=== PATIENT | female | born 1985 | race Hispanic/Latino ===

== ENCOUNTER 2019-05-31 20:22 | Emergency (ER) | payer OTHER ==
--- NOTE | 2019-05-31 23:10 | ER ---
Nurse's Notes [facility] Name: Hannah Grubbs Age: 34 yrs Sex: Female : 1985 Arrival Date: 05/31/2019 Time: 20:25 Bed 7 Private MD: Diagnosis: Cough;Down syndrome;Constipation Presentation: 05/31 20:38 Presenting complaint: Father states: "She's been crying, she's full of mucus and she aj1 can't cough it up, she feels like she can't breathe, like her nose is stuffed up" She was seen at her doctor's office for the same complaint on April 25 and she was diagnosed with allergies and they gave her pills and nasal spray, but it doesn't seem to be helping with her symptoms. Transition of care: patient was not received from another setting of care. Onset of symptoms was April 2019. Risk Assessment: Do you want to hurt yourself or someone else? Patient reports no desire to harm self or others. Initial Sepsis Screen: Does the patient meet any 2 criteria? No. Patient's initial sepsis screen is negative. Does the patient have a suspected source of infection? Yes: Productive cough/pneumonia. Care prior to arrival: None. 20:38 Method Of Arrival: Wheelchair aj1 20:38 Acuity: JOSHUA 3 aj1 Triage Assessment: 20:41 General: Appears in no apparent distress. comfortable, Behavior is calm, cooperative, aj1 appropriate for age. Pain: Unable to use pain scale. Does not appear to understand pain scale. Neuro: Level of Consciousness is awake, alert. Cardiovascular: Patient's skin is warm and dry. Respiratory: Airway is patent Respiratory effort is even, unlabored, Respiratory pattern is regular, symmetrical, the patient has mild shortness of breath. 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 - Coronavirus screen:: The patient has NOT traveled to [place] in the past 14 days. - Social history:: Smoking status: Patient denies any tobacco usage or history of. - Ebola Screening: : Patient denies travel to an Ebola-affected area in the 21 days before illness onset. Screenin:15 Abuse screen: Denies threats or abuse. Denies injuries from another. Nutritional lp1 screening: No deficits noted. Tuberculosis screening: No symptoms or risk factors identified. Fall Risk None identified. Assessment: 21:14 General: Appears in no apparent distress. Behavior is fussy, uncooperative. Pain: lp1 Unable to use pain scale. Does not appear to understand pain scale. Neuro: Level of Consciousness is awake, alert. Cardiovascular: Patient's skin is warm and dry. Respiratory: Airway is patent Respiratory effort is even, Breath sounds are clear bilaterally. Parent/caregiver reports the patient having cough that is productive. GI: Abdomen is non-distended. : No signs and/or symptoms were reported regarding the genitourinary system. EENT: Parent/caregiver reports the patient having nasal congestion. Derm: Skin is pink, warm \\T\\ dry. Musculoskeletal: No deficits noted. 21:30 Reassessment: Patient uncooperative with radiology, yelling, parents at bedside lp1 assisting civil cadd technician. 22:49 Reassessment: Patient agitated on arrival of nurse for reassessment; Parents at lp1 bedside, aware of waiting for report from radiologist. 23:25 Reassessment: Discharge instructions given to patient's parents about prescriptions and lp1 follow up with PCP if no improvement; increasing fiber to improve constipation. Vital Signs: 20:41 BP 130 / 99; Resp 18; Temp 98.4; Weight 52.62 kg (R); aj1 22:49 Pulse 125; Resp 20; Pulse Ox 99% on R/A; lp1 22:49 Patient agitated with pulse ox on finger, mother at bedside attempting to calm patient lp1 ED Course: 20:25 Patient arrived in ED. jg7 20:26 Patient's name was called from ER lobby. No response. aj1 20:39 Triage completed. aj1 20:41 Arm band placed on Patient placed in an exam room. aj1 20:45 Samir Boyd, RN is Primary Nurse. rv 20:45 Gerry Aly MD is Attending Physician. juaniat 21:14 Tiffanie Marina, YEHUDA is Primary Nurse. lp1 21:16 Patient has correct armband on for positive identification. lp1 22:50 No provider procedures requiring assistance completed. Patient did not have IV access lp1 during this emergency room visit. Administered Medications: No medications were administered Outcome: 23:09 Discharge ordered by . juanita 23:25 Discharged to home via wheelchair, with family. lp1 23:25 Condition: good 23:25 Discharge instructions given to pool lifeguard, Instructed on discharge instructions, follow up and referral plans. medication usage, Demonstrated understanding of instructions, follow-up care, medications, Prescriptions given X 2. 23:26 Patient left the ED. lp1 Signatures: Rylee Phelan, RN RN aj1 Gerry Aly MD MD cha Pena, Laura RN RN lp1 Samir Boyd RN RN Polina Evansg7 Corrections: (The following items were deleted from the chart) 21:18 21:14 Respiratory: Airway is patent Respiratory effort is even, Breath sounds are clear lp1 bilaterally. lp1 21:18 21:14 EENT: No signs and/or symptoms were reported regarding the EENT system. lp1 lp1
--- NOTE | 2019-05-31 23:10 | EDPHYS ---
Physician Documentation [facility] Name: Hannah Grubbs Age: 34 yrs Sex: Female : 1985 Arrival Date: 05/31/2019 Time: 20:25 Bed 7 Private MD: LORNA Physician Gerry Aly HPI: 05/31 21:09 This 34 yrs old Female presents to ER via Wheelchair with complaints of juanita Breathing Difficulty, Abdominal Pain. 21:09 The patient has shortness of breath with light activity. Onset: The symptoms/episode juanita began/occurred 2 day(s) ago. The patient's shortness of breath has no apparent modifying factors. Associated signs and symptoms: The patient has no apparent associated signs or symptoms. Severity of symptoms: At their worst the symptoms were mild. The patient has not experienced similar symptoms in the past. 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 - Coronavirus screen:: The patient has NOT traveled to [place] in the past 14 days. - Social history:: Smoking status: Patient denies any tobacco usage or history of. - Ebola Screening: : Patient denies travel to an Ebola-affected area in the 21 days before illness onset. ROS: 21:10 Constitutional: Negative for fever, chills, and weight loss, Eyes: Negative for injury, juanita pain, redness, and discharge, ENT: Negative for injury, pain, and discharge, Neck: Negative for injury, pain, and swelling, Cardiovascular: Negative for chest pain, palpitations, and edema, Back: Negative for injury and pain, : Negative for injury, bleeding, discharge, and swelling, MS/Extremity: Negative for injury and deformity, Skin: Negative for injury, rash, and discoloration, Neuro: Negative for headache, weakness, numbness, tingling, and seizure, Psych: Negative for depression, anxiety, suicide ideation, homicidal ideation, and hallucinations, Allergy/Immunology: Negative for hives, rash, and allergies, Endocrine: Negative for neck swelling, polydipsia, polyuria, polyphagia, and marked weight changes. 21:10 Respiratory: Positive for cough. 21:10 Abdomen/GI: Positive for abdominal distension. Exam: 21:10 Constitutional: This is a well developed, well nourished patient who is awake, alert, juanita and in no acute distress. Head/Face: Normocephalic, atraumatic. Eyes: Pupils equal round and reactive to light, extra-ocular motions intact. Lids and lashes normal. Conjunctiva and sclera are non-icteric and not injected. Cornea within normal limits. Periorbital areas with no swelling, redness, or edema. ENT: Nares patent. No nasal discharge, no septal abnormalities noted. Tympanic membranes are normal and external auditory canals are clear. Oropharynx with no redness, swelling, or masses, exudates, or evidence of obstruction, uvula midline. Mucous membranes moist. Neck: Trachea midline, no thyromegaly or masses palpated, and no cervical lymphadenopathy. Supple, full range of motion without nuchal rigidity, or vertebral point tenderness. No Meningismus. Chest/axilla: Normal chest wall appearance and motion. Nontender with no deformity. No lesions are appreciated. Cardiovascular: Regular rate and rhythm with a normal S1 and S2. No gallops, murmurs, or rubs. Normal PMI, no JVD. No pulse deficits. Respiratory: Lungs have equal breath sounds bilaterally, clear to auscultation and percussion. No rales, rhonchi or wheezes noted. No increased work of breathing, no retractions or nasal flaring. Abdomen/GI: Soft, non-tender, with normal bowel sounds. No distension or tympany. No guarding or rebound. No evidence of tenderness throughout. Back: No spinal tenderness. No costovertebral tenderness. Full range of motion. Skin: Warm, dry with normal turgor. Normal color with no rashes, no lesions, and no evidence of cellulitis. MS/ Extremity: Pulses equal, no cyanosis. Neurovascular intact. Full, normal range of motion. Neuro: Awake and alert, GCS 15, oriented to person, place, time, and situation. Cranial nerves II-XII grossly intact. Motor strength 5/5 in all extremities. Sensory grossly intact. Cerebellar exam normal. Normal gait. 23:10 Musculoskeletal/extremity: DVT Exam: No signs of deep vein thrombosis. no pain, no juanita swelling, no tenderness, negative Homans' sign noted on exam, no appreciated bluish discoloration, no erythema, no increased warmth. Vital Signs: 20:41 BP 130 / 99; Resp 18; Temp 98.4; Weight 52.62 kg (R); aj1 22:49 Pulse 125; Resp 20; Pulse Ox 99% on R/A; lp1 22:49 Patient agitated with pulse ox on finger, mother at bedside attempting to calm patient lp1 MDM: 20:45 Patient medically screened. [facility] 21:11 Data reviewed: vital signs, nurses notes, radiologic studies. [facility] 05/31 21:09 Order name: Chest Single View XRAY [facility] Administered Medications: No medications were administered Disposition: 05/31/19 23:09 Discharged to Home. Impression: Cough, Down syndrome, Constipation. - Condition is Stable. - Discharge Instructions: Constipation, Adult, Cool Mist Vaporizer, Constipation, Adult, [id number], Cough, Adult, [id number], Cough, Adult. - Prescriptions for Miralax 17 gram/dose Oral - take 1 packet by ORAL route once daily dilute powder in 8 ounces of water or juice; 20 packet. Zithromax Z- Gavin 250 mg Oral Tablet - take 1 tablet by ORAL route as directed for 5 days Day 1 - take two (2) tablets one time. Day 2, 3, 4 , 5 take one (1) tablet once daily.; 6 tablet. - Medication Reconciliation Form, Thank You Letter, Antibiotic Education, Prescription Opioid Use form. - Follow up: Private Physician; When: 1 - 2 days; Reason: Recheck today's complaints, Continuance of care, Re-evaluation by your physician. - Problem is new. - Symptoms have improved. Signatures: Dispatcher [employer] Rylee Cavazos RN RN aj1 Gerry Aly MD MD cha Pena, Laura RN RN lp1 Corrections: (The following items were deleted from the chart) 23:26 23:09 05/31/2019 23:09 Discharged to Home. Impression: Cough; Down syndrome; lp1 Constipation. Condition is Stable. Discharge Instructions: Constipation, Adult, Constipation, Adult, [id number], Cough, Adult, [id number], Cough, Adult. Prescriptions for Miralax 17 gram/dose Oral - take 1 packet by ORAL route once daily dilute powder in 8 ounces of water or juice; 20 packet. and Forms are Medication Reconciliation Form, Thank You Letter, Antibiotic Education, Prescription Opioid Use. Follow up: Private Physician; When: 1 - 2 days; Reason: Recheck today's complaints, Continuance of care, Re-evaluation by your physician. Problem is new. Symptoms have improved. juanita
[2019-06-01 01:57] VITALS: BP 130/99; TEMP 98.4
[2019-06-01 01:59] VITALS: O2SAT 99
--- NOTE | 2019-06-01 11:15 | RAD REPORT ---
EXAM DESCRIPTION: RAD - Chest Single View - 05/31/2019 9:30 pm CLINICAL HISTORY: 34 years Female COUGH TECHNIQUE: One view of the chest. COMPARISON: 04/12/13. FINDINGS: The lungs are clear without focal consolidation, effusion, or pneumothorax. The cardiomedi astinal silhouette and central pulmonary vasculature are normal. No acute osseous abnormalities. IMPRESSION: No acute cardiopulmonary abnormalities. Electronically signed by: Blanche Zarco MD 05/31/2019 10:53 PM ACTUARIAL TRAINEE Due to temporary technical issues with the PACS/Fluency reporting system, reports are being signed by the in house radiologist as a courtesy to ensure prompt reporting. The interpreting radiologist is f ully responsible for the content of the report.
== END 2019-05-31 23:26 | disposition home or self-care (01) ==
LOC: ER 20:22
DX: R05 Cough (principal); K59.00 Constipation, unspecified; Q90.9 Down syndrome, unspecified
CPT/HCPCS: 71045; 99283